=== PATIENT | female | born 1950 | race Caucasian/White ===

== ENCOUNTER 2021-02-21 20:17 | Inpatient (IN) | payer OTHER ==
[~2021-02-21] VITALS: Ht 157.5 cm; Wt 72.7 kg
[2021-02-21] MEDS ORDERED: INSULIN LANTUS (GLARGINE) 1 /0.01ml (100units/ml) SC ONE (20:30)
[2021-02-21] MEDS ORDERED: DEXTROSE (50%) 50ML SYRG IV PRN (20:30)
[2021-02-21 21:35] LABS: Basophils # (auto) 0.1 10 ^3/uL (0-0.2); Eosinophils # (auto) 0.1 10 ^3/uL (0-0.8); Hemoglobin 11.7 g/dL (12.2-16.2); Lymphocytes # (auto) 2.2 10 ^3/uL (0.4-5.4); Monocytes # (auto) 0.6 10 ^3/uL (0-1.3); Neutrophils # (auto) 4.6 10 ^3/uL (1.6-8.6); White Blood Cell 7.6 10^3/uL (4.4-10.8)
[2021-02-21 21:38] LABS: Basophils % (auto) 0.8 % (0.0-2.0); Eosinophils % (auto) 1.9 % (0.0-7.0); Hematocrit 37.5 % (36.0-46.0); Lymphocytes % (auto) 28.7 % (10.0-50.0); Mean Corpuscular Hgb Conc. 31.2 g/dL (32.0-36.0); Mean Corpuscular Volume 83.4 fL (80.0-100.0); Monocytes % (auto) 7.6 % (0.0-12.0); Red Blood Cells 4.49 10^6/uL (4.0-5.20); Red Cell Distribution Width 15.8 % (11.8-14.3)
[2021-02-21 22:56] LABS: Urine Bacteria NONE SEEN /hpf (None Seen); Urine Blood 3+ /uL (Negative); Urine Specific Gravity 1.015 (1.001-1.035); Urine WBC 2066 /hpf (0 - 5); Urine WBC Clumps PRESENT /hpf (None Seen)
[2021-02-21 23:06] LABS: Urine Budding Yeast Many /hpf (None Seen)
[2021-02-21 23:10] LABS: Potassium 4.5 mmol/L (3.5-5.1)
[2021-02-21 23:11] LABS: BUN/Creatinine Ratio 16.6; Calcium 10.4 mg/dL (8.5-10.1); Phosphorus 2.7 mg/dL (2.5-4.90)
[2021-02-21 23:12] LABS: Magnesium 2.4 mg/dL (1.6-2.6)
[2021-02-22] MEDS ORDERED: NITROGLYCERIN 0.4 MG SL TAB SL PRN
[2021-02-22] MEDS ORDERED: ONDANSETRON HCL 4 MG/2 ML VIAL IV PRN
[2021-02-22] MEDS ORDERED: cefTRIAXone 1GM/50ML D5W 50 ML IV ONE
[2021-02-22] MEDS ORDERED: guaiFENesin-DM 100/10mg/5ml SYR PO PRN
[2021-02-22] MEDS ORDERED: MORPHINE SULFATE INJECTION 2 MG/ML SYRG IV PRN
[2021-02-22] MEDS ORDERED: SODIUM CHLORIDE 0.9% 1,000 ML IV SCH (00:30)
[2021-02-22] MEDS: ACCU-CHEK COMFORT CURVE STRIP VI SCH ×14 (01:30→21:53)
[2021-02-22 02:48] LABS: BUN/Creatinine Ratio 16.9
[2021-02-22] MEDS ORDERED: InsuLIN REG 1unit/0.01ml Soln (100units/ml) ONE ×2 (03:01→03:15)
[2021-02-22] MEDS: InsuLIN R (HUMAN) 100 UNITS in SODIUM CHL 0.9% 99 ML IV SCH ×4 (03:44→11:14)
[2021-02-22] MEDS: SODIUM CHLORIDE 0.9% 1,000 ML IV SCH ×4 (04:09→10:50)
[2021-02-22 07:40] LABS: Basophils # (auto) 0 10 ^3/uL (0-0.2); Eosinophils # (auto) 0.1 10 ^3/uL (0-0.8); Eosinophils % (auto) 1.3 % (0.0-7.0); Red Cell Distribution Width 15.5 % (11.8-14.3); White Blood Cell 9.5 10^3/uL (4.4-10.8)
[2021-02-22 07:41] LABS: Basophils % (auto) 0.3 % (0.0-2.0); Hematocrit 35.8 % (36.0-46.0); Hemoglobin 11.3 g/dL (12.2-16.2); Lymphocytes # (auto) 2.4 10 ^3/uL (0.4-5.4); Mean Corpuscular Hemoglobin 25.8 pg (28.0-32.0); Mean Corpuscular Hgb Conc. 31.4 g/dL (32.0-36.0); Mean Corpuscular Volume 82.2 fL (80.0-100.0); Monocytes # (auto) 0.7 10 ^3/uL (0-1.3); Monocytes % (auto) 7.3 % (0.0-12.0); Neutrophils # (auto) 6.3 10 ^3/uL (1.6-8.6); Neutrophils % (auto) 66.1 % (37.0-80.0); Red Blood Cells 4.36 10^6/uL (4.0-5.20)
[2021-02-22 08:06] LABS: Calcium 9.9 mg/dL (8.5-10.1); Potassium 3.6 mmol/L (3.5-5.1)
[2021-02-22 08:08] LABS: BUN/Creatinine Ratio 17.1
[2021-02-22 08:54] LABS: INR 1.07 (0.9-1.15)
[2021-02-22] MEDS ORDERED: OXYB5TAB61 PO (09:19)
[2021-02-22] MEDS ORDERED: INSU1INJ19 SC (09:19)
[2021-02-22] MEDS ORDERED: MAGNESIUM SULFATE 1GM/100ML 100 ML IV ONE (09:30)
[2021-02-22] MEDS ORDERED: INSULIN LANTUS (GLARGINE) 1 /0.01ml (100units/ml) SC SCH (10:00)
[2021-02-22] MEDS ORDERED: PANTOPRAZOLE 40 MG/10 ML VIAL INJ IV SCH (10:00)
[2021-02-22 10:15] LABS: Urine Bacteria FEW /hpf (None Seen); Urine Blood 3+ /uL (Negative); Urine WBC 3102 /hpf (0 - 5); Urine WBC Clumps PRESENT /hpf (None Seen)
[2021-02-22] MEDS ORDERED: AZITHROMYCIN 250 MG TAB PO ONE (10:15)
[2021-02-22 10:28] LABS: Urine Specific Gravity 1.015 (1.001-1.035)
[2021-02-22 10:30] LABS: Urine Budding Yeast FEW /hpf (None Seen)
[2021-02-22 11:22] LABS: Cholesterol 102 mg/dL (< 200); Triglycerides 295 mg/dL (< 150)
[2021-02-22 11:24] LABS: HDL Cholesterol 21 mg/dL (40-59); LDL Cholesterol 45 mg/dL (< 100)
[2021-02-22 11:26] LABS: Lactic Acid w/Reflex 2.2 mmol/L (0.4-2.0)
[2021-02-22 15:26] LABS: Albumin 2.1 g/dL (3.4-5.0); Calcium 9.5 mg/dL (8.5-10.1); Potassium 3.5 mmol/L (3.5-5.1)
[2021-02-22 15:29] LABS: Bilirubin, Total 0.2 mg/dL (0.2-1.0); Total Protein 6.9 g/dL (6.4-8.2)
[2021-02-22] MEDS ORDERED: POTASSIUM CHL 20 Meq TABLET PO ONE (16:00)
[2021-02-22] MEDS ORDERED: ERGOCALCIFEROL 50,000 UNIT(1.25MG) CAP PO SCH (16:00)
[2021-02-22] MEDS ORDERED: DEXTROSE (50%) 50ML SYRG IV PRN (16:00)
[2021-02-22 17:13] LABS: Protein, Urine 244.9 mg/dL (0.0-11.9)
[2021-02-22] MEDS: InsuLIN REG 1unit/0.01ml Soln (100units/ml) SC SCH ×2 (17:17→21:57)
[2021-02-22] MEDS: LACTATED RINGER'S 1,000 ML IV SCH ×2 (18:40→22:00)
[2021-02-22] MEDS: INSULIN LANTUS (GLARGINE) 1 /0.01ml (100units/ml) SC SCH (21:57)
[2021-02-22] MEDS: cefTRIAXone 1GM/50ML D5W 50 ML IV SCH (21:58)
[2021-02-23 00:42] VITALS: BP 130/71
[2021-02-23 01:17] LABS: Calcium 9.1 mg/dL (8.5-10.1); Potassium 3.8 mmol/L (3.5-5.1)
[2021-02-23 01:21] LABS: BUN/Creatinine Ratio 13.7; Bilirubin, Total 0.2 mg/dL (0.2-1.0); Total Protein 6.6 g/dL (6.4-8.2)
[2021-02-23 05:00] VITALS: BP 134/83
[2021-02-23 05:20] LABS: Calcium 9.2 mg/dL (8.5-10.1)
[2021-02-23 05:25] LABS: BUN/Creatinine Ratio 14.1; Bilirubin, Total 0.2 mg/dL (0.2-1.0); Total Protein 6.4 g/dL (6.4-8.2)
[2021-02-23] MEDS: ACCU-CHEK COMFORT CURVE STRIP VI SCH ×4 (06:15→23:42)
[2021-02-23] MEDS: InsuLIN REG 1unit/0.01ml Soln (100units/ml) SC SCH ×4 (06:25→23:43)
[2021-02-23] MEDS: LACTATED RINGER'S 1,000 ML IV SCH ×2 (06:32→20:10)
[2021-02-23 08:00] VITALS: BP 126/68
[2021-02-23] MEDS: ACETAMINOPHEN 325 MG TAB PO PRN ×2 (09:02→17:56)
[2021-02-23] MEDS: AZITHROMYCIN 250 MG TAB PO SCH (10:02)
[2021-02-23] MEDS: INSULIN LANTUS (GLARGINE) 1 /0.01ml (100units/ml) SC SCH ×2 (10:15→22:00)
[2021-02-23 12:00] VITALS: BP 150/71
[2021-02-23] MEDS ORDERED: POLYETHYLENE GLYCOL 17 GM PWDR PO ONE (12:00)
[2021-02-23] MEDS ORDERED: glipiZIDE 5 MG TAB PO ONE (12:15)
[2021-02-23 12:23] LABS: Calcium 9.4 mg/dL (8.5-10.1); Potassium 4.3 mmol/L (3.5-5.1)
[2021-02-23 12:26] LABS: BUN/Creatinine Ratio 11.8; Bilirubin, Total 0.2 mg/dL (0.2-1.0); Total Protein 6.7 g/dL (6.4-8.2)
[2021-02-23 16:00] VITALS: BP 122/68
[2021-02-23 19:23] LABS: Albumin 2.1 g/dL (3.4-5.0); BUN/Creatinine Ratio 13.1; Calcium 9.4 mg/dL (8.5-10.1); Potassium 3.5 mmol/L (3.5-5.1)
[2021-02-23 19:26] LABS: Bilirubin, Total 0.1 mg/dL (0.2-1.0); Total Protein 6.7 g/dL (6.4-8.2)
[2021-02-23 21:00] VITALS: BP 129/75
[2021-02-23] MEDS: cefTRIAXone 1GM/50ML D5W 50 ML IV SCH (23:41)
[2021-02-24 01:10] LABS: Alanine Aminotransferase 9 U/L (13-56); Albumin 1.8 g/dL (3.4-5.0); Anion Gap 9 (5-15); Aspartate Aminotransferase 6 U/L (15-37); BUN/Creatinine Ratio 12.2; Blood Urea Nitrogen 20 mg/dL (7-18); Carbon Dioxide 19 mmol/L (21-32); Chloride 113 mmol/L (98-107); GFR African American 39 mL/min; GFR Non-African American 33 mL/min; Glucose 273 mg/dL (74-106); Potassium 3.5 mmol/L (3.5-5.1); Sodium 141 mmol/L (136-145)
[2021-02-24 01:12] LABS: Alkaline Phosphatase 71 U/L (45-117); Bilirubin, Total < 0.1 mg/dL (0.2-1.0); Total Protein 6.2 g/dL (6.4-8.2)
[2021-02-24 04:00] VITALS: BP 112/67
[2021-02-24 06:36] LABS: Potassium 3.6 mmol/L (3.5-5.1)
[2021-02-24] MEDS: InsuLIN REG 1unit/0.01ml Soln (100units/ml) SC SCH ×3 (06:37→17:00)
[2021-02-24] MEDS: ACCU-CHEK COMFORT CURVE STRIP VI SCH ×3 (06:40→17:10)
[2021-02-24 06:44] LABS: BUN/Creatinine Ratio 13.1; Calcium 9.1 mg/dL (8.5-10.1); Magnesium 1.9 mg/dL (1.6-2.6); Phosphorus 2.1 mg/dL (2.5-4.90)
[2021-02-24] MEDS ORDERED: glipiZIDE 5 MG TAB PO SCH (07:00)
[2021-02-24] MEDS ORDERED: POTASSIUM PHOSPHATE 44 MEQ in D5W 5% 250 ML IV ONE (08:00)
[2021-02-24] MEDS ORDERED: MAGNESIUM OXIDE 400 MG TAB PO ONE (08:00)
[2021-02-24 09:00] VITALS: BP 126/58
[2021-02-24] MEDS: AZITHROMYCIN 250 MG TAB PO SCH (09:06)
[2021-02-24] MEDS: ACETAMINOPHEN 325 MG TAB PO PRN (09:15)
[2021-02-24] MEDS: INSULIN LANTUS (GLARGINE) 1 /0.01ml (100units/ml) SC SCH (09:22)
[2021-02-24] MEDS ORDERED: POLYETHYLENE GLYCOL 17 GM PWDR PO SCH (10:00)
[2021-02-24] MEDS ORDERED: POTASSIUM PHOSPHATE 22 MEQ in SODIUM CHL 0.9% 100 ML IV ONE (12:15)
[2021-02-24] MEDS: LACTATED RINGER'S 1,000 ML IV SCH (12:34)
[2021-02-24] MEDS ORDERED: FLUC200T50 PO (12:49)
[2021-02-24] MEDS ORDERED: INSU1INJ19 SC (12:49)
[2021-02-24] MEDS ORDERED: CLIN-203 PO (12:49)
[2021-02-24] MEDS ORDERED: ERGO1CAP23 PO (12:49)
[2021-02-24] MEDS ORDERED: GLIP5TAB12 PO (12:49)
[2021-02-24 13:00] VITALS: BP 126/69
[2021-02-24 17:00] VITALS: BP 131/78
== END 2021-02-24 17:32 | disposition home or self-care (01) | DRG 638 ==
LOC: ER 20:22 → TELE 23:50 → TELE-WESTW 02-22 23:39 → WEST WING 02-23 11:45
PROVIDERS: ADMIT Nurse Practitioner; ATTEND Internal Medicine
DX: E11.10 Type 2 diabetes mellitus with ketoacidosis without coma (principal); N39.0 Urinary tract infection, site not specified; N17.9 Acute kidney failure, unspecified; I47.2 Ventricular tachycardia; J98.11 Atelectasis; L97.319 Non-pressure chronic ulcer of right ankle with unspecified severity; Z66 Do not resuscitate; N18.9 Chronic kidney disease, unspecified; E11.00 Type 2 diabetes mellitus with hyperosmolarity without nonketotic hyperglycemic-hyperosmolar coma (NKHHC); E11.22 Type 2 diabetes mellitus with diabetic chronic kidney disease; E11.51 Type 2 diabetes mellitus with diabetic peripheral angiopathy without gangrene; E11.621 Type 2 diabetes mellitus with foot ulcer; E55.9 Vitamin D deficiency, unspecified; E87.5 Hyperkalemia; E87.6 Hypokalemia; L97.519 Non-pressure chronic ulcer of other part of right foot with unspecified severity; Z20.822 Contact with and (suspected) exposure to COVID-19; L97.529 Non-pressure chronic ulcer of other part of left foot with unspecified severity; Z82.49 Family history of ischemic heart disease and other diseases of the circulatory system; Z91.14 Patient's other noncompliance with medication regimen; Z99.3 Dependence on wheelchair
CPT/HCPCS: 36415; 36600; 71045; 76775; 80048; 80053; 80061; 81001; 82010; 82306; 82570; 82607; 82805; 82962; 83036; 83605; 83735; 83930; 83935; 84100; 84156; 84300; 84439; 84443; 84484; 85025; 85610; 87040; 87077; 87086; 87088; 87205; 87426; 93005; 93306; 93925; 96361; 96365; 96372; 97163; 99291; C9113; G0378; J0696; J1815; J7060

== ENCOUNTER 2021-05-07 15:00 | Inpatient (IN) | payer OTHER ==
[~2021-05-07] VITALS: Ht 165.1 cm; Wt 65.7 kg
[~2021-05-07 15:00] MED LIST: CLIN-203 PO; ERGO1CAP23 PO; FLUC200T50 PO; GLIP5TAB12 PO; INSU1INJ19 SC; OXYB5TAB61 PO
[2021-05-07] MEDS ORDERED: SODIUM CHLORIDE 0.9% 1,000 ML IV ONE (16:45)
[2021-05-07 17:19] LABS: Basophils # (auto) 0 10 ^3/uL (0-0.2); Eosinophils # (auto) 0 10 ^3/uL (0-0.8); Monocytes # (auto) 0.6 10 ^3/uL (0-1.3); Red Cell Distribution Width 17.1 % (11.8-14.3)
[2021-05-07 17:20] LABS: Basophils % (auto) 0.3 % (0.0-2.0); Eosinophils % (auto) 0.5 % (0.0-7.0); Hematocrit 37.5 % (36.0-46.0); Lymphocytes # (auto) 1.3 10 ^3/uL (0.4-5.4); Lymphocytes % (auto) 12.8 % (10.0-50.0); Mean Corpuscular Hemoglobin 26.4 pg (28.0-32.0); Mean Corpuscular Volume 82.5 fL (80.0-100.0); Neutrophils # (auto) 8.3 10 ^3/uL (1.6-8.6); Neutrophils % (auto) 80.4 % (37.0-80.0); Nucleated Red Blood Cells % 0.1 %; Red Blood Cells 4.54 10^6/uL (4.0-5.20); White Blood Cell 10.3 10^3/uL (4.4-10.8)
[2021-05-07 17:36] LABS: Alanine Aminotransferase 15 U/L (13-56); Albumin 2.4 g/dL (3.4-5.0); Anion Gap 16 (5-15); Aspartate Aminotransferase 5 U/L (15-37); BUN/Creatinine Ratio 22.9; Blood Alcohol < 3.0 mg/dL (0-5); Calcium 9.5 mg/dL (8.5-10.1); Carbon Dioxide 14 mmol/L (21-32); Chloride 95 mmol/L (98-107); GFR African American 15 mL/min; GFR Non-African American 12 mL/min; Potassium 4.5 mmol/L (3.5-5.1); Sodium 125 mmol/L (136-145)
[2021-05-07 17:54] LABS: Alkaline Phosphatase 122 U/L (45-117)
[2021-05-07 17:55] LABS: Bilirubin, Total 0.3 mg/dL (0.2-1.0); Total Protein 7.5 g/dL (6.4-8.2)
[2021-05-07 17:57] LABS: Blood Urea Nitrogen 87 mg/dL (7-18); Glucose 528 mg/dL (74-106)
[2021-05-07 18:59] LABS: Urine Bacteria NONE SEEN /hpf (None Seen); Urine Blood 3+ /uL (Negative); Urine Budding Yeast MANY /hpf (None Seen); Urine WBC 3334 /hpf (0 - 5); Urine WBC Clumps PRESENT /hpf (None Seen)
[2021-05-07 19:00] LABS: Urine Specific Gravity 1.017 (1.001-1.035)
[2021-05-07] MEDS ORDERED: cefTRIAXone 1GM/50ML D5W 50 ML IV ONE (22:45)
[2021-05-07] MEDS ORDERED: CEFD300C2 PO (22:50)
[2021-05-08] MEDS ORDERED: SODIUM CHLORIDE 0.9% 500 ML IV ONE (06:30)
[2021-05-08] MEDS ORDERED: SODIUM CHLORIDE 0.9% 1,800 ML IV ONE (13:00)
[2021-05-08] MEDS ORDERED: MORPHINE SULFATE INJECTION 2 MG/ML SYRG IV PRN (13:00)
[2021-05-08] MEDS ORDERED: NITROGLYCERIN 0.4 MG SL TAB SL PRN (13:00)
[2021-05-08] MEDS ORDERED: traMADol HCL 50 MG TAB PO PRN (13:45)
[2021-05-08] MEDS ORDERED: LACTULOSE 20Gm/30ML SOLN PO PRN (13:45)
[2021-05-08] MEDS ORDERED: DEXTROSE (50%) 50ML SYRG IV PRN (13:45)
[2021-05-08] MEDS ORDERED: ONDANSETRON HCL 4 MG/2 ML VIAL IV PRN (13:45)
[2021-05-08] MEDS ORDERED: InsuLIN REG 1unit/0.01ml Soln (100units/ml) SC ONE (13:45)
[2021-05-08] MEDS: SODIUM CHLORIDE 0.9% 1,000 ML IV SCH ×2 (13:54→23:45)
[2021-05-08] MEDS ORDERED: NITR-87 PO (14:00)
[2021-05-08] MEDS ORDERED: OXYB5SYP4 PO (14:00)
[2021-05-08] MEDS ORDERED: ASPI81CH74 PO (14:00)
[2021-05-08] MEDS ORDERED: ONDA-144 PO (14:00)
[2021-05-08] MEDS ORDERED: ATOR40TA52 PO (14:00)
[2021-05-08] MEDS ORDERED: OMEP-263 PO (14:00)
[2021-05-08 14:26] LABS: BUN/Creatinine Ratio 26.2; Calcium 9.4 mg/dL (8.5-10.1); Potassium 4.2 mmol/L (3.5-5.1)
[2021-05-08] MEDS: ACCU-CHEK COMFORT CURVE STRIP VI SCH ×2 (16:21→20:42)
[2021-05-08] MEDS: InsuLIN REG 1unit/0.01ml Soln (100units/ml) SC SCH ×2 (16:21→20:56)
[2021-05-08 17:00] VITALS: BP 97/84
[2021-05-08 17:26] VITALS: BP 97/84
[2021-05-08 20:00] VITALS: BP 114/62
[2021-05-08 22:00] VITALS: BP 114/62
[2021-05-09] MEDS: ACCU-CHEK COMFORT CURVE STRIP VI SCH ×7 (01:03→23:27)
[2021-05-09] MEDS: traMADol HCL 50 MG TAB PO PRN ×2 (01:04→21:11)
[2021-05-09] MEDS: InsuLIN REG 1unit/0.01ml Soln (100units/ml) SC SCH ×7 (01:07→23:27)
[2021-05-09] MEDS: SODIUM CHLORIDE 0.9% 1,000 ML IV SCH ×2 (01:18→18:54)
[2021-05-09 05:00] VITALS: BP 106/58
[2021-05-09] MEDS: ASPirin 81 mg TAB PO SCH (08:28)
[2021-05-09] MEDS: cefTRIAXone 1GM/50ML D5W 50 ML IV SCH (08:28)
[2021-05-09] MEDS: ENOXAPARIN SOD 30 MG/0.3 ML SYRINGE SC SCH (08:28)
[2021-05-09 09:00] VITALS: BP 106/49
[2021-05-09 13:00] VITALS: BP 100/51
[2021-05-09] MEDS: FLUCONAZOLE 200MG/100ML 100 ML IV SCH ×2 (15:28→18:54)
[2021-05-09] MEDS ORDERED: SODIUM CHLORIDE 0.9% 1,000 ML IV ONE (16:45)
[2021-05-09 17:00] VITALS: BP 87/42
[2021-05-09] MEDS ORDERED: ERGOCALCIFEROL 50,000 UNIT(1.25MG) CAP PO SCH (17:15)
[2021-05-09 18:02] VITALS: BP 105/48
[2021-05-09] MEDS: ATORVASTATIN 20 MG TAB PO SCH (21:11)
[2021-05-09 22:00] VITALS: BP 111/60
[2021-05-10] MEDS: ACCU-CHEK COMFORT CURVE STRIP VI SCH ×5 (03:53→20:00)
[2021-05-10] MEDS: InsuLIN REG 1unit/0.01ml Soln (100units/ml) SC SCH ×5 (04:05→20:00)
[2021-05-10 05:00] VITALS: BP 112/61
[2021-05-10 06:54] LABS: Basophils # (auto) 0 10 ^3/uL (0-0.2); Basophils % (auto) 0.4 % (0.0-2.0); Eosinophils # (auto) 0.1 10 ^3/uL (0-0.8); Eosinophils % (auto) 1.5 % (0.0-7.0); Hematocrit 28.6 % (36.0-46.0); Hemoglobin 9.6 g/dL (12.2-16.2); Lymphocytes # (auto) 2.2 10 ^3/uL (0.4-5.4); Lymphocytes % (auto) 32.8 % (10.0-50.0); Mean Corpuscular Hemoglobin 27.4 pg (28.0-32.0); Mean Corpuscular Hgb Conc. 33.4 g/dL (32.0-36.0); Mean Corpuscular Volume 81.9 fL (80.0-100.0); Monocytes # (auto) 0.5 10 ^3/uL (0-1.3); Monocytes % (auto) 7.9 % (0.0-12.0); Neutrophils # (auto) 3.8 10 ^3/uL (1.6-8.6); Neutrophils % (auto) 57.4 % (37.0-80.0); Nucleated Red Blood Cells % 0.1 %; Red Cell Distribution Width 17.4 % (11.8-14.3); White Blood Cell 6.6 10^3/uL (4.4-10.8)
[2021-05-10 07:09] LABS: Potassium 3.9 mmol/L (3.5-5.1)
[2021-05-10 07:16] LABS: BUN/Creatinine Ratio 23.2; Calcium 7.7 mg/dL (8.5-10.1); Magnesium 1.8 mg/dL (1.6-2.6); Phosphorus 1.9 mg/dL (2.5-4.90)
[2021-05-10] MEDS: cefTRIAXone 1GM/50ML D5W 50 ML IV SCH (07:46)
[2021-05-10] MEDS: ENOXAPARIN SOD 30 MG/0.3 ML SYRINGE SC SCH (07:46)
[2021-05-10] MEDS: ASPirin 81 mg TAB PO SCH (07:47)
[2021-05-10] MEDS: SODIUM CHLORIDE 0.9% 1,000 ML IV SCH ×2 (08:00→18:11)
[2021-05-10] MEDS: PANTOPRAZOLE 40 MG TAB PO SCH (08:08)
[2021-05-10 09:00] VITALS: BP 99/50
[2021-05-10] MEDS: FLUCONAZOLE 200MG/100ML 100 ML IV SCH (09:00)
[2021-05-10 13:00] VITALS: BP 111/62
[2021-05-10] MEDS ORDERED: POTASSIUM PHOSPHATE 44 MEQ in D5W 5% 250 ML IV ONE (15:15)
[2021-05-10 17:00] VITALS: BP 122/62
[2021-05-10 21:51] VITALS: BP 118/63
[2021-05-10] MEDS: SODIUM BICARBONATE 650 MG TAB PO SCH (22:00)
[2021-05-10] MEDS: ACETAMINOPHEN 500 MG TAB PO PRN (22:03)
[2021-05-10] MEDS: ATORVASTATIN 20 MG TAB PO SCH (22:04)
[2021-05-10] MEDS: MAGNESIUM OXIDE 400 MG TAB PO SCH (22:04)
[2021-05-11] MEDS: SODIUM CHLORIDE 0.9% 1,000 ML IV SCH ×3 (01:45→21:42)
[2021-05-11] MEDS: traMADol HCL 50 MG TAB PO PRN ×2 (02:25→21:44)
[2021-05-11] MEDS: ACCU-CHEK COMFORT CURVE STRIP VI SCH ×6 (04:00→20:24)
[2021-05-11] MEDS: InsuLIN REG 1unit/0.01ml Soln (100units/ml) SC SCH ×6 (04:00→20:28)
[2021-05-11 04:59] VITALS: BP 120/64
[2021-05-11] MEDS: SODIUM BICARBONATE 650 MG TAB PO SCH ×3 (06:19→21:43)
[2021-05-11 07:30] LABS: Potassium 3.8 mmol/L (3.5-5.1)
[2021-05-11 07:39] LABS: BUN/Creatinine Ratio 17.9; Calcium 7.7 mg/dL (8.5-10.1); Magnesium 1.8 mg/dL (1.6-2.6); Phosphorus 2.7 mg/dL (2.5-4.90)
[2021-05-11 08:00] VITALS: BP 111/68
[2021-05-11] MEDS: cefTRIAXone 1GM/50ML D5W 50 ML IV SCH (08:39)
[2021-05-11 09:00] VITALS: BP 111/68
[2021-05-11] MEDS: FLUCONAZOLE 200MG/100ML 100 ML IV SCH (09:34)
[2021-05-11] MEDS: ASPirin 81 mg TAB PO SCH (09:34)
[2021-05-11] MEDS: ENOXAPARIN SOD 30 MG/0.3 ML SYRINGE SC SCH (09:35)
[2021-05-11] MEDS: MAGNESIUM OXIDE 400 MG TAB PO SCH ×2 (09:35→21:44)
[2021-05-11] MEDS: PANTOPRAZOLE 40 MG TAB PO SCH (09:35)
[2021-05-11 13:00] VITALS: BP 108/68
[2021-05-11 17:13] VITALS: BP 123/69
[2021-05-11 21:34] VITALS: BP 120/61
[2021-05-11] MEDS: ATORVASTATIN 20 MG TAB PO SCH (21:44)
[2021-05-12] MEDS: ACCU-CHEK COMFORT CURVE STRIP VI SCH ×4 (00:21→12:25)
[2021-05-12] MEDS: InsuLIN REG 1unit/0.01ml Soln (100units/ml) SC SCH ×4 (00:27→12:26)
[2021-05-12] MEDS: ACETAMINOPHEN 500 MG TAB PO PRN ×2 (00:28→10:57)
[2021-05-12] MEDS: SODIUM CHLORIDE 0.9% 1,000 ML IV SCH (04:16)
[2021-05-12 05:00] VITALS: BP 103/61
[2021-05-12] MEDS: SODIUM BICARBONATE 650 MG TAB PO SCH (06:12)
[2021-05-12] MEDS: traMADol HCL 50 MG TAB PO PRN (06:25)
[2021-05-12 08:00] VITALS: BP 107/62
[2021-05-12] MEDS: cefTRIAXone 1GM/50ML D5W 50 ML IV SCH (08:16)
[2021-05-12 09:09] LABS: Basophils # (auto) 0 10 ^3/uL (0-0.2); Eosinophils # (auto) 0.1 10 ^3/uL (0-0.8); Lymphocytes # (auto) 1.7 10 ^3/uL (0.4-5.4); Lymphocytes % (auto) 35.1 % (10.0-50.0); Mean Corpuscular Hgb Conc. 32.1 g/dL (32.0-36.0); Monocytes # (auto) 0.5 10 ^3/uL (0-1.3); Neutrophils # (auto) 2.5 10 ^3/uL (1.6-8.6); White Blood Cell 4.8 10^3/uL (4.4-10.8)
[2021-05-12 09:13] LABS: Basophils % (auto) 0.9 % (0.0-2.0); Eosinophils % (auto) 1.8 % (0.0-7.0); Hematocrit 26.7 % (36.0-46.0); Hemoglobin 8.6 g/dL (12.2-16.2); Mean Corpuscular Hemoglobin 26.6 pg (28.0-32.0); Mean Corpuscular Volume 82.7 fL (80.0-100.0); Monocytes % (auto) 9.8 % (0.0-12.0); Neutrophils % (auto) 52.4 % (37.0-80.0); Nucleated Red Blood Cells % 0.1 %; Red Blood Cells 3.22 10^6/uL (4.0-5.20); Red Cell Distribution Width 16.8 % (11.8-14.3)
[2021-05-12 09:23] LABS: BUN/Creatinine Ratio 15.3; Calcium 7.6 mg/dL (8.5-10.1); Potassium 3.9 mmol/L (3.5-5.1)
[2021-05-12 09:26] VITALS: BP 107/62
[2021-05-12] MEDS: ASPirin 81 mg TAB PO SCH (10:01)
[2021-05-12] MEDS: FLUCONAZOLE 200MG/100ML 100 ML IV SCH (10:01)
[2021-05-12] MEDS: MAGNESIUM OXIDE 400 MG TAB PO SCH (10:01)
[2021-05-12] MEDS: PANTOPRAZOLE 40 MG TAB PO SCH (10:01)
[2021-05-12] MEDS: ENOXAPARIN SOD 30 MG/0.3 ML SYRINGE SC SCH (10:02)
[2021-05-12 13:37] VITALS: BP 115/56
== END 2021-05-12 15:40 | disposition home or self-care (01) | DRG 70 ==
LOC: ER 15:00 → EDBD 15:00 → TELE-WESTW 05-08 12:49 → ER 05-08 16:39 → WEST WING 05-10 08:46
PROVIDERS: ADMIT Internal Medicine; ATTEND Internal Medicine
DX: G93.41 Metabolic encephalopathy (principal); E11.10 Type 2 diabetes mellitus with ketoacidosis without coma; N17.9 Acute kidney failure, unspecified; N13.6 Pyonephrosis; E86.0 Dehydration; E11.65 Type 2 diabetes mellitus with hyperglycemia; K21.9 Gastro-esophageal reflux disease without esophagitis; I10 Essential (primary) hypertension; B96.20 Unspecified Escherichia coli [E. coli] as the cause of diseases classified elsewhere; E78.5 Hyperlipidemia, unspecified; Z20.822 Contact with and (suspected) exposure to COVID-19; J44.9 Chronic obstructive pulmonary disease, unspecified; S81.802A Unspecified open wound, left lower leg, initial encounter; S81.801A Unspecified open wound, right lower leg, initial encounter; X58.XXXA Exposure to other specified factors, initial encounter; Z66 Do not resuscitate; Z86.79 Personal history of other diseases of the circulatory system; Z90.710 Acquired absence of both cervix and uterus; Y93.89 Activity, other specified; Z91.19 Patient's noncompliance with other medical treatment and regimen; Y92.89 Other specified places as the place of occurrence of the external cause; Y99.8 Other external cause status
CPT/HCPCS: 36415; 51702; 70450; 70551; 74176; 76775; 80048; 80053; 80320; 81001; 82010; 82550; 82962; 83036; 83735; 83930; 84100; 84443; 84484; 85025; 87086; 87088; 87186; 87426; 96361; 96365; 96372; 97116; 97162; 97530; G0378; J0696; J1450; J1815; J2405; J7060

== ENCOUNTER 2021-05-22 17:41 | Inpatient (IN) | payer OTHER ==
[~2021-05-22] VITALS: Ht 167.6 cm; Wt 65.5 kg
[~2021-05-22 17:41] MED LIST changes: +ASPI81CH74 PO; +ATOR40TA52 PO; +CEFD300C2 PO; +NITR-87 PO; +OMEP-263 PO; +ONDA-144 PO; +OXYB5SYP4 PO
[2021-05-22] MEDS ORDERED: SODIUM CHLORIDE 0.9% 500 ML IV ONE (18:30)
[2021-05-22 22:11] LABS: Urine Bacteria FEW /hpf (None Seen); Urine Blood 3+ /uL (Negative); Urine Budding Yeast MANY /hpf (None Seen); Urine WBC 4077 /hpf (0 - 5); Urine WBC Clumps PRESENT /hpf (None Seen)
[2021-05-22 22:12] LABS: Lymphocytes # (auto) 1.7 10 ^3/uL (0.4-5.4); Monocytes # (auto) 0.5 10 ^3/uL (0-1.3); Neutrophils # (auto) 5.2 10 ^3/uL (1.6-8.6); Nucleated Red Blood Cells % 0.2 %
[2021-05-22 22:14] LABS: Basophils # (auto) 0 10 ^3/uL (0-0.2); Basophils % (auto) 0.5 % (0.0-2.0); Eosinophils # (auto) 0 10 ^3/uL (0-0.8); Eosinophils % (auto) 0.5 % (0.0-7.0); Hematocrit 38.9 % (36.0-46.0); Hemoglobin 11.5 g/dL (12.2-16.2); Lymphocytes % (auto) 22.7 % (10.0-50.0); Mean Corpuscular Hgb Conc. 29.7 g/dL (32.0-36.0); Mean Corpuscular Volume 87.6 fL (80.0-100.0); Monocytes % (auto) 6.7 % (0.0-12.0); Neutrophils % (auto) 69.6 % (37.0-80.0); Red Blood Cells 4.44 10^6/uL (4.0-5.20); Red Cell Distribution Width 17.4 % (11.8-14.3); White Blood Cell 7.4 10^3/uL (4.4-10.8)
[2021-05-22 23:04] LABS: Albumin 2.4 g/dL (3.4-5.0); Bilirubin, Total 0.3 mg/dL (0.2-1.0); Calcium 9.7 mg/dL (8.5-10.1); Magnesium 2.1 mg/dL (1.6-2.6); Total Protein 8.5 g/dL (6.4-8.2)
[2021-05-22 23:05] LABS: BUN/Creatinine Ratio 20.1
[2021-05-22 23:46] LABS: Potassium 5.7 mmol/L (3.5-5.1)
[2021-05-23] MEDS ORDERED: CALCIUM GLUC 1,000mg/50ml-NS 50 ML IV ONE ×2
[2021-05-23] MEDS ORDERED: SODIUM CHLORIDE 0.9% 1,000 ML IV ONE
[2021-05-23] MEDS ORDERED: SODIUM ZIRCONIUM CYCL 10 GM PAK PO ONE
[2021-05-23] MEDS ORDERED: MORPHINE SULFATE INJECTION 2 MG/ML SYRG IV PRN (00:45)
[2021-05-23] MEDS ORDERED: ACETAMINOPHEN 325 MG TAB PO PRN (00:45)
[2021-05-23] MEDS ORDERED: DEXTROSE (50%) 50ML SYRG IV PRN ×2 (00:45→13:00)
[2021-05-23] MEDS ORDERED: NITROGLYCERIN 0.4 MG SL TAB SL PRN (00:45)
[2021-05-23] MEDS ORDERED: INSULIN LANTUS (GLARGINE) 1 /0.01ml (100units/ml) SC ONE ×2 (00:45→13:00)
[2021-05-23] MEDS ORDERED: ONDANSETRON HCL 4 MG/2 ML VIAL IV PRN (00:45)
[2021-05-23] MEDS ORDERED: InsuLIN REG 1unit/0.01ml Soln (100units/ml) ONE (01:53)
[2021-05-23] MEDS: ACCU-CHEK COMFORT CURVE STRIP VI SCH ×10 (02:03→21:54)
[2021-05-23] MEDS: InsuLIN R (HUMAN) 100 UNITS in SODIUM CHL 0.9% 99 ML IV SCH ×2 (02:04→09:38)
[2021-05-23] MEDS: SODIUM CHLORIDE 0.9% 1,000 ML IV SCH ×2 (02:45→03:39)
[2021-05-23 03:25] LABS: BUN/Creatinine Ratio 20.7; Calcium 9.6 mg/dL (8.5-10.1); Potassium 5.5 mmol/L (3.5-5.1)
[2021-05-23] MEDS ORDERED: SODIUM CHLORIDE 0.9% 1,000 ML IV SCH ×2 (04:45→09:30)
[2021-05-23] MEDS ORDERED: ALBUMIN 5% 250 ML IV ONE ×2 (05:41→07:15)
[2021-05-23] MEDS ORDERED: PHENYLEPHRINE INJ 40 MG in SODIUM CHL 0.9% 246 ML IV SCH (07:45)
[2021-05-23 08:21] LABS: Potassium 4.7 mmol/L (3.5-5.1)
[2021-05-23 08:29] LABS: BUN/Creatinine Ratio 22.2; Calcium 9.5 mg/dL (8.5-10.1)
[2021-05-23] MEDS: PANTOPRAZOLE 40 MG/10 ML VIAL INJ IV SCH (09:34)
[2021-05-23] MEDS ORDERED: D5W/SOD CHL 0.45% 1,000 ML IV SCH (11:45)
[2021-05-23] MEDS ORDERED: SODIUM CHLORIDE 0.9% 500 ML IV ONE (13:00)
[2021-05-23] MEDS ORDERED: FLUCONAZOLE 200MG/100ML 100 ML IV ONE (13:00)
[2021-05-23] MEDS ORDERED: INSU1INJ19 SC (15:16)
[2021-05-23] MEDS ORDERED: GLIP10TA9 PO (15:16)
[2021-05-23] MEDS ORDERED: ASPI-543 PO (15:16)
[2021-05-23] MEDS ORDERED: CEFTRIAXONE SODIUM 2 GM in D5W 5% 50 ML IV ONE (16:15)
[2021-05-23 16:23] LABS: Alanine Aminotransferase 18 U/L (13-56); Albumin 2.3 g/dL (3.4-5.0); Anion Gap 9 (5-15); Aspartate Aminotransferase 17 U/L (15-37); Blood Urea Nitrogen 34 mg/dL (7-18); Calcium 9.1 mg/dL (8.5-10.1); Carbon Dioxide 18 mmol/L (21-32); Chloride 116 mmol/L (98-107); GFR African American 40 mL/min; GFR Non-African American 33 mL/min; Glucose 136 mg/dL (74-106); Potassium 4.6 mmol/L (3.5-5.1); Sodium 143 mmol/L (136-145)
[2021-05-23 16:26] LABS: Alkaline Phosphatase 100 U/L (45-117); Bilirubin, Total 0.2 mg/dL (0.2-1.0); Total Protein 6.1 g/dL (6.4-8.2)
[2021-05-23] MEDS ORDERED: ENOXAPARIN SOD 60 MG/0.6 ML SYRINGE SC ONE (16:30)
[2021-05-23] MEDS: InsuLIN REG 1unit/0.01ml Soln (100units/ml) SC SCH ×2 (16:58→21:54)
[2021-05-23] MEDS: NOREPINEPHRINE 8 MG/250ML KIT 250 ML IV SCH (18:07)
[2021-05-24] MEDS: ACCU-CHEK COMFORT CURVE STRIP VI SCH ×4 (06:27→22:53)
[2021-05-24] MEDS: InsuLIN REG 1unit/0.01ml Soln (100units/ml) SC SCH ×4 (06:28→23:05)
[2021-05-24 07:43] LABS: Basophils # (auto) 0.1 10 ^3/uL (0-0.2); Hemoglobin 9.5 g/dL (12.2-16.2); Mean Corpuscular Hemoglobin 26.6 pg (28.0-32.0); Mean Corpuscular Volume 83.9 fL (80.0-100.0); Monocytes # (auto) 0.6 10 ^3/uL (0-1.3); Neutrophils # (auto) 6.2 10 ^3/uL (1.6-8.6)
[2021-05-24 07:53] LABS: Basophils % (auto) 0.9 % (0.0-2.0); Eosinophils # (auto) 0.3 10 ^3/uL (0-0.8); Lymphocytes # (auto) 1.8 10 ^3/uL (0.4-5.4); Lymphocytes % (auto) 20.2 % (10.0-50.0); Mean Corpuscular Hgb Conc. 31.8 g/dL (32.0-36.0); Monocytes % (auto) 6.9 % (0.0-12.0); Nucleated Red Blood Cells % 0.2 %; Red Blood Cells 3.57 10^6/uL (4.0-5.20); Red Cell Distribution Width 17.3 % (11.8-14.3)
[2021-05-24 08:00] LABS: Albumin 2.2 g/dL (3.4-5.0); BUN/Creatinine Ratio 15.9; Calcium 8.9 mg/dL (8.5-10.1); Magnesium 2.2 mg/dL (1.6-2.6); Potassium 4.5 mmol/L (3.5-5.1)
[2021-05-24 08:03] LABS: Bilirubin, Total 0.2 mg/dL (0.2-1.0); Total Protein 6.6 g/dL (6.4-8.2)
[2021-05-24] MEDS: cefTRIAXone 1GM/50ML D5W 50 ML IV SCH (09:21)
[2021-05-24] MEDS: PANTOPRAZOLE 40 MG/10 ML VIAL INJ IV SCH (09:44)
[2021-05-24] MEDS: ENOXAPARIN SOD 60 MG/0.6 ML SYRINGE SC SCH (09:44)
[2021-05-24] MEDS: FLUCONAZOLE 200MG/100ML 100 ML IV SCH (09:55)
[2021-05-24] MEDS ORDERED: INSULIN LANTUS (GLARGINE) 1 /0.01ml (100units/ml) SC SCH (10:00)
[2021-05-24] MEDS ORDERED: ALBUMIN 5% 250 ML IV ONE (12:15)
[2021-05-24] MEDS: NOREPINEPHRINE 8 MG/250ML KIT 250 ML IV SCH (19:42)
[2021-05-25] MEDS: HYDROcodone-ACET 5/325MG TAB PO PRN (01:00)
[2021-05-25 07:09] LABS: Nucleated Red Blood Cells % 0.1 %
[2021-05-25 07:22] LABS: Basophils # (auto) 0.1 10 ^3/uL (0-0.2); Eosinophils # (auto) 0.2 10 ^3/uL (0-0.8); Eosinophils % (auto) 2.3 % (0.0-7.0); Hematocrit 29.5 % (36.0-46.0); Hemoglobin 9.3 g/dL (12.2-16.2); Lymphocytes # (auto) 2.6 10 ^3/uL (0.4-5.4); Lymphocytes % (auto) 37.7 % (10.0-50.0); Mean Corpuscular Hemoglobin 26.2 pg (28.0-32.0); Mean Corpuscular Hgb Conc. 31.5 g/dL (32.0-36.0); Mean Corpuscular Volume 83.4 fL (80.0-100.0); Monocytes # (auto) 0.5 10 ^3/uL (0-1.3); Monocytes % (auto) 7.7 % (0.0-12.0); Neutrophils # (auto) 3.6 10 ^3/uL (1.6-8.6); Neutrophils % (auto) 51.3 % (37.0-80.0); Red Blood Cells 3.54 10^6/uL (4.0-5.20); Red Cell Distribution Width 16.8 % (11.8-14.3)
[2021-05-25 07:23] LABS: BUN/Creatinine Ratio 13.1; Calcium 9.1 mg/dL (8.5-10.1); Potassium 4.3 mmol/L (3.5-5.1)
[2021-05-25] MEDS: ACCU-CHEK COMFORT CURVE STRIP VI SCH ×4 (07:26→21:45)
[2021-05-25] MEDS: InsuLIN REG 1unit/0.01ml Soln (100units/ml) SC SCH ×4 (07:27→22:13)
[2021-05-25] MEDS: cefTRIAXone 1GM/50ML D5W 50 ML IV SCH (09:51)
[2021-05-25] MEDS: ENOXAPARIN SOD 60 MG/0.6 ML SYRINGE SC SCH (11:03)
[2021-05-25] MEDS: PANTOPRAZOLE 40 MG/10 ML VIAL INJ IV SCH (11:03)
[2021-05-25] MEDS: FLUCONAZOLE 200MG/100ML 100 ML IV SCH (11:08)
[2021-05-25] MEDS: NOREPINEPHRINE 8 MG/250ML KIT 250 ML IV SCH (17:15)
[2021-05-25] MEDS: SODIUM CHLORIDE 0.9% 1,000 ML IV SCH (18:15)
[2021-05-25 22:00] VITALS: BP 120/64
[2021-05-26] MEDS: HYDROcodone-ACET 5/325MG TAB PO PRN (00:18)
[2021-05-26 05:00] VITALS: BP 101/53
[2021-05-26] MEDS: ACCU-CHEK COMFORT CURVE STRIP VI SCH ×2 (06:05→12:28)
[2021-05-26] MEDS: InsuLIN REG 1unit/0.01ml Soln (100units/ml) SC SCH ×2 (06:11→12:29)
[2021-05-26 07:04] LABS: Basophils # (auto) 0 10 ^3/uL (0-0.2); Basophils % (auto) 0.7 % (0.0-2.0); Eosinophils # (auto) 0.1 10 ^3/uL (0-0.8); Hematocrit 28.1 % (36.0-46.0); Lymphocytes % (auto) 29.4 % (10.0-50.0); Mean Corpuscular Hemoglobin 26.7 pg (28.0-32.0); Mean Corpuscular Hgb Conc. 32.1 g/dL (32.0-36.0); Mean Corpuscular Volume 83.1 fL (80.0-100.0); Monocytes # (auto) 0.5 10 ^3/uL (0-1.3); Monocytes % (auto) 7.2 % (0.0-12.0); Neutrophils # (auto) 4.2 10 ^3/uL (1.6-8.6); Neutrophils % (auto) 60.7 % (37.0-80.0); Nucleated Red Blood Cells % 0.1 %; Red Blood Cells 3.38 10^6/uL (4.0-5.20); Red Cell Distribution Width 17.2 % (11.8-14.3); White Blood Cell 6.8 10^3/uL (4.4-10.8)
[2021-05-26 07:31] LABS: Potassium 4.6 mmol/L (3.5-5.1)
[2021-05-26 07:36] LABS: BUN/Creatinine Ratio 17.1; Calcium 8.9 mg/dL (8.5-10.1); Magnesium 2.4 mg/dL (1.6-2.6)
[2021-05-26 08:00] VITALS: BP 106/55
[2021-05-26 09:00] VITALS: BP 106/55
[2021-05-26] MEDS ORDERED: INSULIN LISPRO (HUMAN) 100 UNITS/ML ML SC ONE (09:30)
[2021-05-26] MEDS: cefTRIAXone 1GM/50ML D5W 50 ML IV SCH (09:51)
[2021-05-26] MEDS: FLUCONAZOLE 200MG/100ML 100 ML IV SCH (09:51)
[2021-05-26] MEDS: PANTOPRAZOLE 40 MG/10 ML VIAL INJ IV SCH (09:51)
[2021-05-26] MEDS: ENOXAPARIN SOD 60 MG/0.6 ML SYRINGE SC SCH (09:51)
[2021-05-26] MEDS ORDERED: LEVO500T31 PO (12:41)
[2021-05-26] MEDS ORDERED: OXYB5TAB61 PO (12:41)
[2021-05-26] MEDS ORDERED: SODIUM PHOSPHATES 20 MEQ in SODIUM CHL 0.9% 100 ML IV ONE (12:45)
[2021-05-26 13:00] VITALS: BP 108/60
[2021-05-26] MEDS: SODIUM CHLORIDE 0.9% 1,000 ML IV SCH (14:15)
== END 2021-05-26 17:03 | disposition home health service (06) | DRG 637 ==
LOC: EDBD 17:41 → ER 17:41 → TELE 05-23 00:44 → TELE-WESTW 05-25 18:34
PROVIDERS: ADMIT Nurse Practitioner; ATTEND Internal Medicine
DX: E11.10 Type 2 diabetes mellitus with ketoacidosis without coma (principal); E43 Unspecified severe protein-calorie malnutrition; N17.9 Acute kidney failure, unspecified; N13.6 Pyonephrosis; E11.65 Type 2 diabetes mellitus with hyperglycemia; N18.9 Chronic kidney disease, unspecified; E86.0 Dehydration; E11.22 Type 2 diabetes mellitus with diabetic chronic kidney disease; E78.5 Hyperlipidemia, unspecified; F17.200 Nicotine dependence, unspecified, uncomplicated; H91.90 Unspecified hearing loss, unspecified ear; Z20.822 Contact with and (suspected) exposure to COVID-19; Z66 Do not resuscitate; K21.9 Gastro-esophageal reflux disease without esophagitis; R32 Unspecified urinary incontinence; S81.809A Unspecified open wound, unspecified lower leg, initial encounter; X58.XXXA Exposure to other specified factors, initial encounter; Y93.89 Activity, other specified; Y92.89 Other specified places as the place of occurrence of the external cause; Z82.49 Family history of ischemic heart disease and other diseases of the circulatory system; Z90.710 Acquired absence of both cervix and uterus; Z91.14 Patient's other noncompliance with medication regimen; Y99.8 Other external cause status; Z68.23 Body mass index [BMI] 23.0-23.9, adult
CPT/HCPCS: 36415; 70450; 71045; 80048; 80053; 81001; 82010; 82962; 83605; 83735; 83880; 83930; 84100; 85025; 85379; 87086; 87088; 87186; 87205; 87426; 93005; 93970; 96360; 96361; C9113; G0378; J0696; J1450; J1815; J7060

== ENCOUNTER 2021-06-11 15:34 | Inpatient (IN) | payer OTHER ==
[~2021-06-11] VITALS: Ht 162.6 cm; Wt 67.8 kg
[~2021-06-11 15:34] MED LIST changes: +ASPI-543 PO; -ASPI81CH74 PO; -CEFD300C2 PO; -CLIN-203 PO; -ERGO1CAP23 PO; -FLUC200T50 PO; +GLIP10TA9 PO; -GLIP5TAB12 PO; +LEVO500T31 PO; -NITR-87 PO; -ONDA-144 PO; -OXYB5SYP4 PO
[2021-06-11] MEDS ORDERED: SODIUM CHLORIDE 0.9% 500 ML IV ONE (16:30)
[2021-06-11] MEDS ORDERED: InsuLIN REG 1unit/0.01ml Soln (100units/ml) IV ONE (16:30)
[2021-06-11] MEDS ORDERED: InsuLIN R (HUMAN) 100 UNITS in SODIUM CHL 0.9% 99 ML IV SCH (16:45)
[2021-06-11] MEDS ORDERED: INSULIN LANTUS (GLARGINE) 1 /0.01ml (100units/ml) SC ONE (16:45)
[2021-06-11] MEDS ORDERED: DEXTROSE (50%) 50ML SYRG IV PRN (16:45)
[2021-06-11] MEDS: ACCU-CHEK COMFORT CURVE STRIP VI SCH ×4 (17:30→22:59)
[2021-06-11 18:47] LABS: Basophils # (auto) 0 10 ^3/uL (0-0.2); Basophils % (auto) 0.2 % (0.0-2.0); Eosinophils # (auto) 0 10 ^3/uL (0-0.8); Hemoglobin 9.4 g/dL (12.2-16.2); Monocytes # (auto) 0.8 10 ^3/uL (0-1.3); Neutrophils # (auto) 18.6 10 ^3/uL (1.6-8.6)
[2021-06-11 18:50] LABS: Hematocrit 31.2 % (36.0-46.0); Lymphocytes # (auto) 0.5 10 ^3/uL (0.4-5.4); Lymphocytes % (auto) 2.3 % (10.0-50.0); Mean Corpuscular Hemoglobin 26.4 pg (28.0-32.0); Monocytes % (auto) 4.1 % (0.0-12.0); Neutrophils % (auto) 93.4 % (37.0-80.0); Red Blood Cells 3.55 10^6/uL (4.0-5.20); Red Cell Distribution Width 16.5 % (11.8-14.3); White Blood Cell 19.9 10^3/uL (4.4-10.8)
[2021-06-11 19:03] LABS: Albumin 2.6 g/dL (3.4-5.0); Calcium 9.6 mg/dL (8.5-10.1); Magnesium 3.6 mg/dL (1.6-2.6)
[2021-06-11 19:07] LABS: BUN/Creatinine Ratio 23.6; Bilirubin, Total 0.3 mg/dL (0.2-1.0); Total Protein 7.9 g/dL (6.4-8.2)
[2021-06-11] MEDS ORDERED: cefTRIAXone 1GM/50ML D5W 50 ML IV ONE (19:15)
[2021-06-11] MEDS ORDERED: SODIUM BICARBONATE 8.4 % INJ 50ML VIAL IV ONE (20:00)
[2021-06-11] MEDS ORDERED: SODIUM CHLORIDE 0.9% 2,000 ML IV ONE (21:15)
[2021-06-11] MEDS ORDERED: SODIUM CHLORIDE 0.9% 1,000 ML IV ONE (21:15)
[2021-06-11 23:14] LABS: Urine Bacteria MANY /hpf (None Seen); Urine Blood 3+ /uL (Negative); Urine Budding Yeast MODERATE /hpf (None Seen); Urine WBC 17428 /hpf (0 - 5); Urine WBC Clumps PRESENT /hpf (None Seen)
[2021-06-11 23:16] LABS: Urine Specific Gravity 1.015 (1.001-1.035)
[2021-06-12] MEDS ORDERED: SODIUM CHLORIDE 0.9% 500 ML IV ONE
[2021-06-12] MEDS: ACCU-CHEK COMFORT CURVE STRIP VI SCH ×9 (00:08→22:29)
[2021-06-12] MEDS: SODIUM CHLORIDE 0.9% 1,000 ML IV SCH ×4 (00:08→09:46)
[2021-06-12] MEDS ORDERED: ONDANSETRON HCL 4 MG/2 ML VIAL IV PRN (01:30)
[2021-06-12] MEDS ORDERED: NITROGLYCERIN 0.4 MG SL TAB SL PRN (01:30)
[2021-06-12] MEDS ORDERED: MORPHINE SULFATE INJECTION 2 MG/ML SYRG IV PRN (01:30)
[2021-06-12] MEDS ORDERED: DOCUSATE SOD 100 MG CAP PO PRN (01:30)
[2021-06-12] MEDS ORDERED: HYDROcodone-ACET 5/325MG TAB PO PRN (01:30)
[2021-06-12] MEDS ORDERED: ACETAMINOPHEN 325 MG TAB PO PRN (01:30)
[2021-06-12] MEDS ORDERED: VANCOMYCIN PER PHARMACY 0 MG IV SCH (01:30)
[2021-06-12] MEDS ORDERED: VANCOMYCIN 1GM/250ML 250 ML IV ONE (02:00)
[2021-06-12] MEDS: NOREPINEPHRINE 8 MG/250ML KIT 250 ML IV SCH ×2 (03:00→06:01)
[2021-06-12 03:03] LABS: BUN/Creatinine Ratio 25.7; Calcium 8.7 mg/dL (8.5-10.1); Potassium 4.7 mmol/L (3.5-5.1)
[2021-06-12] MEDS ORDERED: D5W 5% 1,000 ML IV SCH (03:15)
[2021-06-12] MEDS ORDERED: DEXTROSE (50%) 50ML SYRG IV PRN (04:45)
[2021-06-12 05:51] LABS: Basophils # (auto) 0 10 ^3/uL (0-0.2); Basophils % (auto) 0.1 % (0.0-2.0); Eosinophils # (auto) 0.1 10 ^3/uL (0-0.8); Eosinophils % (auto) 0.4 % (0.0-7.0); Hematocrit 29.6 % (36.0-46.0); Hemoglobin 9.5 g/dL (12.2-16.2); Lymphocytes # (auto) 1.3 10 ^3/uL (0.4-5.4); Mean Corpuscular Hemoglobin 26.4 pg (28.0-32.0); Mean Corpuscular Hgb Conc. 32.2 g/dL (32.0-36.0); Mean Corpuscular Volume 82.1 fL (80.0-100.0); Monocytes # (auto) 0.6 10 ^3/uL (0-1.3); Monocytes % (auto) 4.8 % (0.0-12.0); Neutrophils % (auto) 84.7 % (37.0-80.0); Nucleated Red Blood Cells % 0.1 %; Red Cell Distribution Width 16.2 % (11.8-14.3)
[2021-06-12] MEDS ORDERED: PIPERACILLIN-TAZOB 2.25GM 50 ML IV SCH (06:00)
[2021-06-12] MEDS ORDERED: ACCU-CHEK COMFORT CURVE STRIP VI SCH (06:00)
[2021-06-12 06:46] LABS: BUN/Creatinine Ratio 27.7; Calcium 8.5 mg/dL (8.5-10.1); Potassium 4.6 mmol/L (3.5-5.1)
[2021-06-12 06:47] LABS: Albumin 1.8 g/dL (3.4-5.0); Bilirubin, Total 0.2 mg/dL (0.2-1.0); Total Protein 5.7 g/dL (6.4-8.2)
[2021-06-12] MEDS ORDERED: cefTRIAXone 1GM/50ML D5W 50 ML IV SCH (09:00)
[2021-06-12] MEDS: InsuLIN REG 1unit/0.01ml Soln (100units/ml) SC SCH ×5 (09:42→22:40)
[2021-06-12] MEDS: HEPARIN SODIUM (PORCINE) 5000 UNITS/ML 1ML VIAL SC SCH ×2 (09:42→22:52)
[2021-06-12] MEDS: INSULIN LANTUS (GLARGINE) 1 /0.01ml (100units/ml) SC SCH (09:43)
[2021-06-12] MEDS: FAMOTIDINE (10MG/ML) 2ML VL IV SCH ×2 (09:45→22:52)
[2021-06-12] MEDS: MULTIPLE VITAMIN TAB PO SCH (09:46)
[2021-06-12] MEDS ORDERED: ZINC SULFATE 220mg CAP or TAB PO SCH (10:00)
[2021-06-12] MEDS ORDERED: ASCORBIC ACID 500 MG TAB PO SCH (10:00)
[2021-06-12] MEDS: D5W/SOD CHL 0.45% 1,000 ML IV SCH ×2 (10:58→18:00)
[2021-06-12] MEDS ORDERED: FLUCONAZOLE 200MG/100ML 100 ML IV ONE (13:00)
[2021-06-12] MEDS ORDERED: CEFEPIME 1 GM in SODIUM CHL 0.9% 50 ML IV ONE (13:00)
[2021-06-12 13:58] LABS: BUN/Creatinine Ratio 27.8; Calcium 8.9 mg/dL (8.5-10.1); Potassium 4.3 mmol/L (3.5-5.1)
[2021-06-12 19:15] LABS: Calcium 8.9 mg/dL (8.5-10.1); Potassium 3.8 mmol/L (3.5-5.1)
[2021-06-12 19:17] LABS: BUN/Creatinine Ratio 26.8
[2021-06-13] MEDS: D5W/SOD CHL 0.45% 1,000 ML IV SCH ×3 (02:40→19:26)
[2021-06-13] MEDS: NOREPINEPHRINE 8 MG/250ML KIT 250 ML IV SCH (03:28)
[2021-06-13] MEDS: ACCU-CHEK COMFORT CURVE STRIP VI SCH ×4 (06:54→22:25)
[2021-06-13] MEDS: InsuLIN REG 1unit/0.01ml Soln (100units/ml) SC SCH ×4 (06:55→22:00)
[2021-06-13 07:12] LABS: Basophils # (auto) 0 10 ^3/uL (0-0.2); Basophils % (auto) 0.4 % (0.0-2.0); Eosinophils # (auto) 0.1 10 ^3/uL (0-0.8); Lymphocytes # (auto) 1.9 10 ^3/uL (0.4-5.4); Monocytes # (auto) 0.6 10 ^3/uL (0-1.3); Neutrophils % (auto) 76.2 % (37.0-80.0); Red Cell Distribution Width 16.3 % (11.8-14.3)
[2021-06-13 07:14] LABS: Hematocrit 29.8 % (36.0-46.0); Hemoglobin 9.5 g/dL (12.2-16.2); Lymphocytes % (auto) 16.7 % (10.0-50.0); Mean Corpuscular Hemoglobin 26.1 pg (28.0-32.0); Mean Corpuscular Volume 81.8 fL (80.0-100.0); Monocytes % (auto) 5.7 % (0.0-12.0); Neutrophils # (auto) 8.5 10 ^3/uL (1.6-8.6); Red Blood Cells 3.64 10^6/uL (4.0-5.20); White Blood Cell 11.1 10^3/uL (4.4-10.8)
[2021-06-13 07:44] LABS: Calcium 8.6 mg/dL (8.5-10.1); Potassium 3.5 mmol/L (3.5-5.1)
[2021-06-13 07:50] LABS: BUN/Creatinine Ratio 28.6; Bilirubin, Total 0.2 mg/dL (0.2-1.0); Magnesium 2.1 mg/dL (1.6-2.6); Total Protein 6.8 g/dL (6.4-8.2)
[2021-06-13] MEDS ORDERED: SODIUM BICARBONATE 8.4 % INJ 50ML VIAL IV ONE (09:45)
[2021-06-13] MEDS ORDERED: POTASSIUM EFFERVESENT TAB 25 MEQ PO ONE (09:45)
[2021-06-13] MEDS: MULTIPLE VITAMIN TAB PO SCH (10:00)
[2021-06-13] MEDS: FAMOTIDINE (10MG/ML) 2ML VL IV SCH ×2 (10:00→22:32)
[2021-06-13] MEDS: CEFEPIME 1 GM in SODIUM CHL 0.9% 50 ML IV SCH (10:00)
[2021-06-13] MEDS: INSULIN LANTUS (GLARGINE) 1 /0.01ml (100units/ml) SC SCH (10:00)
[2021-06-13] MEDS: HEPARIN SODIUM (PORCINE) 5000 UNITS/ML 1ML VIAL SC SCH ×2 (10:00→22:29)
[2021-06-13] MEDS: FLUCONAZOLE 200MG/100ML 100 ML IV SCH (10:00)
[2021-06-13] MEDS ORDERED: SERTRALINE HCL 50 MG TAB PO ONE (12:45)
[2021-06-13] MEDS: INSULIN 70/30 1unit/0.01ml Susp (100units/ml) SC SCH (18:53)
[2021-06-14] MEDS: D5W/SOD CHL 0.45% 1,000 ML IV SCH ×3 (02:00→18:23)
[2021-06-14] MEDS: InsuLIN REG 1unit/0.01ml Soln (100units/ml) SC SCH ×4 (07:50→20:52)
[2021-06-14] MEDS: ACCU-CHEK COMFORT CURVE STRIP VI SCH ×4 (07:50→21:07)
[2021-06-14 08:12] LABS: BUN/Creatinine Ratio 25.2; Calcium 8.2 mg/dL (8.5-10.1); Magnesium 1.1 mg/dL (1.6-2.6); Phosphorus 2.4 mg/dL (2.5-4.90)
[2021-06-14] MEDS: INSULIN 70/30 1unit/0.01ml Susp (100units/ml) SC SCH ×2 (09:00→18:55)
[2021-06-14] MEDS: FAMOTIDINE (10MG/ML) 2ML VL IV SCH (10:14)
[2021-06-14] MEDS: SERTRALINE HCL 50 MG TAB PO SCH (10:14)
[2021-06-14] MEDS: CEFEPIME 1 GM in SODIUM CHL 0.9% 50 ML IV SCH (10:14)
[2021-06-14] MEDS: MULTIPLE VITAMIN TAB PO SCH (10:14)
[2021-06-14] MEDS: FLUCONAZOLE 200MG/100ML 100 ML IV SCH (10:14)
[2021-06-14] MEDS: HEPARIN SODIUM (PORCINE) 5000 UNITS/ML 1ML VIAL SC SCH ×2 (10:15→21:06)
[2021-06-14] MEDS ORDERED: SODIUM PHOSPHATES 24 MEQ in SODIUM CHL 0.9% 100 ML IV ONE (11:45)
[2021-06-14] MEDS ORDERED: ALBUMIN 25% 100 ML IV ONE (11:45)
[2021-06-14] MEDS: MAGNESIUM SULFATE 1GM/100ML 100 ML IV SCH ×4 (13:35→16:45)
[2021-06-14] MEDS: NOREPINEPHRINE 8 MG/250ML KIT 250 ML IV SCH (15:30)
[2021-06-14] MEDS: MAGNESIUM OXIDE 400 MG TAB PO SCH (21:06)
[2021-06-15] MEDS: D5W/SOD CHL 0.45% 1,000 ML IV SCH ×3 (01:41→18:50)
[2021-06-15] MEDS: NOREPINEPHRINE 8 MG/250ML KIT 250 ML IV SCH (03:00)
[2021-06-15] MEDS: InsuLIN REG 1unit/0.01ml Soln (100units/ml) SC SCH ×4 (05:28→22:20)
[2021-06-15] MEDS: ACCU-CHEK COMFORT CURVE STRIP VI SCH ×4 (06:03→22:21)
[2021-06-15 06:11] LABS: Calcium 8.7 mg/dL (8.5-10.1); Phosphorus 2.6 mg/dL (2.5-4.90); Potassium 3.3 mmol/L (3.5-5.1)
[2021-06-15] MEDS: POTASSIUM CHL 20MEQ/50ML 50 ML IV SCH ×3 (07:11→11:15)
[2021-06-15] MEDS: INSULIN 70/30 1unit/0.01ml Susp (100units/ml) SC SCH ×2 (08:25→19:54)
[2021-06-15] MEDS ORDERED: SERT50TA PO (10:40)
[2021-06-15] MEDS ORDERED: INSU1INJ SC (10:40)
[2021-06-15] MEDS ORDERED: FLUC200T50 PO (10:40)
[2021-06-15] MEDS: FAMOTIDINE (10MG/ML) 2ML VL IV SCH (11:00)
[2021-06-15] MEDS: MAGNESIUM OXIDE 400 MG TAB PO SCH ×2 (11:00→22:03)
[2021-06-15] MEDS: CEFEPIME 1 GM in SODIUM CHL 0.9% 50 ML IV SCH (11:00)
[2021-06-15] MEDS: SERTRALINE HCL 50 MG TAB PO SCH (11:00)
[2021-06-15] MEDS: MULTIPLE VITAMIN TAB PO SCH (11:00)
[2021-06-15] MEDS: HEPARIN SODIUM (PORCINE) 5000 UNITS/ML 1ML VIAL SC SCH ×2 (11:00→22:04)
[2021-06-15] MEDS: FLUCONAZOLE 200MG/100ML 100 ML IV SCH (11:00)
[2021-06-16] MEDS: D5W/SOD CHL 0.45% 1,000 ML IV SCH (02:32)
[2021-06-16] MEDS: NOREPINEPHRINE 8 MG/250ML KIT 250 ML IV SCH (03:00)
[2021-06-16] MEDS: InsuLIN REG 1unit/0.01ml Soln (100units/ml) SC SCH (07:00)
[2021-06-16] MEDS: INSULIN 70/30 1unit/0.01ml Susp (100units/ml) SC SCH (08:00)
[2021-06-16] MEDS: ACCU-CHEK COMFORT CURVE STRIP VI SCH (08:40)
[2021-06-16] MEDS: FLUCONAZOLE 200MG/100ML 100 ML IV SCH (10:01)
[2021-06-16] MEDS: MAGNESIUM OXIDE 400 MG TAB PO SCH (10:01)
[2021-06-16] MEDS: FAMOTIDINE (10MG/ML) 2ML VL IV SCH (10:01)
[2021-06-16] MEDS: MULTIPLE VITAMIN TAB PO SCH (10:01)
[2021-06-16] MEDS: CEFEPIME 1 GM in SODIUM CHL 0.9% 50 ML IV SCH (10:01)
[2021-06-16] MEDS: SERTRALINE HCL 50 MG TAB PO SCH (10:01)
[2021-06-16] MEDS: HEPARIN SODIUM (PORCINE) 5000 UNITS/ML 1ML VIAL SC SCH (10:02)
[2021-06-16 12:49] VITALS: BP 126/75
== END 2021-06-16 13:09 | disposition home health service (06) | DRG 871 ==
LOC: ER 15:34 → EDBD 15:34 → EDSEX 15:34 → TELE 06-12 01:23 → UNDODEPER 06-15 12:59 → TELE 06-16 13:09
PROVIDERS: ADMIT Nurse Practitioner Family; ATTEND Internal Medicine
DX: A41.9 Sepsis, unspecified organism (principal); E11.10 Type 2 diabetes mellitus with ketoacidosis without coma; N18.4 Chronic kidney disease, stage 4 (severe); E87.1 Hypo-osmolality and hyponatremia; N17.9 Acute kidney failure, unspecified; I12.9 Hypertensive chronic kidney disease with stage 1 through stage 4 chronic kidney disease, or unspecified chronic kidney disease; K21.9 Gastro-esophageal reflux disease without esophagitis; E78.5 Hyperlipidemia, unspecified; E83.42 Hypomagnesemia; F32.A Depression, unspecified; I70.0 Atherosclerosis of aorta; R79.89 Other specified abnormal findings of blood chemistry; E87.5 Hyperkalemia; Z20.822 Contact with and (suspected) exposure to COVID-19; Z91.19 Patient's noncompliance with other medical treatment and regimen; Z79.4 Long term (current) use of insulin; Y93.89 Activity, other specified; Y92.89 Other specified places as the place of occurrence of the external cause; Y99.8 Other external cause status; Z90.710 Acquired absence of both cervix and uterus; Z82.49 Family history of ischemic heart disease and other diseases of the circulatory system; Z91.14 Patient's other noncompliance with medication regimen; E11.22 Type 2 diabetes mellitus with diabetic chronic kidney disease
CPT/HCPCS: 36415; 36600; 71045; 80048; 80053; 81001; 82010; 82805; 82962; 83036; 83605; 83735; 84100; 85025; 85048; 87040; 87045; 87086; 87088; 87426; 87427; 87493; 93005; 96361; 96365; 96367; 96372; 96375; 96376; 97163; 99291; G0378; J0696; J1450; J1815; J2543; J3490; P9047